=== PATIENT | male | born 1985 | race Caucasian/White ===

== ENCOUNTER 2017-11-12 23:23 | Emergency (ER) | payer MEDICARE ==
[~2017-11-12] VITALS: Ht 167.6 cm; Wt 77.3 kg
[~2017-11-12 23:23] MED LIST: OXYCONTIN60 MG PO; ROXICODONE30 MG PO; TOPROL XL 25MG25 MG PO
[2017-11-12 23:25] VITALS: BP 127/77; TEMP 97.4
[2017-11-12] MEDS ORDERED: DAZIDOX20 MG PO (23:28)
[2017-11-12] MEDS ORDERED: ADDERALL30 MG PO (23:28)
[2017-11-12] MEDS ORDERED: XANAX 1MG1 MG PO (23:28)
[2017-11-13 03:31] VITALS: PULSE 87
== END 2017-11-13 03:31 | disposition home or self-care (01) ==
LOC: COL.ER 23:23
DX: F10.129 Alcohol abuse with intoxication, unspecified (principal)
CPT/HCPCS: J2550